=== PATIENT | female | born 1985 | race Caucasian/White ===

== ENCOUNTER 2018-06-25 14:38 | Outpatient (CLI) | payer MEDICAID ==
[2018-06-25 15:07] LABS: ADD MAN DIFF? NO
[2018-06-25 15:09] LABS: BASOPHILS % 0.1 % (0.0-2.0); EOSINOPHILS # 0.1 10^3/ul (0.0-0.5); EOSINOPHILS % 0.7 % (0.0-7.0); HEMATOCRIT 34.1 % (37.0-47.0); HEMOGLOBIN 11.4 g/dl (12.0-16.0); LYMPHOCYTES # 1.1 10^3/ul (0.8-2.9); LYMPHOCYTES % 16.2 % (15.0-51.0); MEAN CORPUSCULAR HEMOGLOBIN 30.2 pg (29.0-33.0); MEAN CORPUSCULAR HGB CONC 33.4 g/dl (32.0-37.0); MEAN CORPUSCULAR VOLUME 90.5 fl (82.0-101.0); MEAN PLATELET VOLUME 11.8 fl (7.4-10.4); MONOCYTE # 0.6 10^3/ul (0.3-0.9); MONOCYTES % 9.1 % (0.0-11.0); NEUTROPHIL # 5.1 10^3/ul (1.6-7.5); NEUTROPHILS % 73.3 % (39.0-77.0); PLATELET COUNT 147 10^3/UL (140-415); RED BLOOD COUNT 3.77 10^6/ul (4.20-5.40); RED CELL DISTRIBUTION WIDTH 13.4 % (11.5-14.5)
[2018-06-25 15:46] LABS: FREE T3 2.71 pg/ml (2.77-5.27)
[2018-06-25 15:46] LABS: FREE T4 (FREE THYROXINE) 1.14 ng/dl (0.79-2.35)
[2018-06-25 16:01] LABS: HEPATITIS B SURFACE ANTIGEN NEGATIVE (NEGATIVE)
[2018-06-25 16:11] LABS: HIV 1&2 ANTIBODY NEGATIVE (NEGATIVE)
[2018-06-26 13:51] LABS: RUBELLA ANTIBODY - IGG 2.49 index
[2018-06-26 20:44] LABS: RAPID PLASMA REAGIN NONREACTIVE (NR)
== END 2018-06-25 17:25 | disposition home or self-care (01) ==
LOC: OBT 14:38 → L-D 14:38 → OBT 17:25
DX: O26.893 Other specified pregnancy related conditions, third trimester (principal); Z3A.37 37 weeks gestation of pregnancy; R10.2 Pelvic and perineal pain
CPT/HCPCS: 76815; 76818; 84439; 84443; 84481; 85025; 86592; 86703; 86762; 86900; 86901; 87081; 87340; 87591

== ENCOUNTER 2018-07-06 02:01 | Inpatient (IN) | payer MEDICAID ==
[2018-07-06] MEDS: LACTATED RINGER'S 1,000 ML IV (02:46)
[2018-07-06] MEDS ORDERED: CARBOPROST 250 MCG INJ IM ×2 (03:00→05:30)
[2018-07-06] MEDS ORDERED: MISOPROSTOL 200 MCG TAB PR ×2 (03:00→05:30)
[2018-07-06] MEDS ORDERED: METHYLERGONOVINE 0.2 MG INJ IM ×2 (03:00→05:30)
[2018-07-06] MEDS ORDERED: IBUPROFEN 600 MG TAB PO (03:00)
[2018-07-06] MEDS ORDERED: AMPICILLIN 2 GM/NS (PMX) 100 ML IV (03:00)
[2018-07-06] MEDS ORDERED: OXYTOCIN 30 UNITS/LR 500 ML IV ×2 (03:00→05:30)
[2018-07-06] MEDS ORDERED: BUTORPHANOL 2 MG INJ IV ×2 (03:00)
[2018-07-06 03:12] LABS: ADD MAN DIFF? NO
[2018-07-06 03:13] LABS: BASOPHILS % 0.1 % (0.0-2.0); EOSINOPHILS # 0.1 10^3/ul (0.0-0.5); EOSINOPHILS % 0.5 % (0.0-7.0); HEMOGLOBIN 11.5 g/dl (12.0-16.0); LYMPHOCYTES % 18.5 % (15.0-51.0); MEAN CORPUSCULAR HEMOGLOBIN 30.7 pg (29.0-33.0); MEAN CORPUSCULAR HGB CONC 33.8 g/dl (32.0-37.0); MEAN CORPUSCULAR VOLUME 90.7 fl (82.0-101.0); MEAN PLATELET VOLUME 12.6 fl (7.4-10.4); MONOCYTE # 1.1 10^3/ul (0.3-0.9); MONOCYTES % 9.8 % (0.0-11.0); NEUTROPHIL # 7.7 10^3/ul (1.6-7.5); NEUTROPHILS % 70.5 % (39.0-77.0); PLATELET COUNT 136 10^3/UL (140-415); RED BLOOD COUNT 3.75 10^6/ul (4.20-5.40); RED CELL DISTRIBUTION WIDTH 13.1 % (11.5-14.5)
[2018-07-06 03:17] LABS: INR 0.93; PROTIME 12.6 Sec (11.9-14.9)
[2018-07-06] MEDS: OXYTOCIN 30 UNITS/LR 500 ML IV ×2 (03:26→03:41)
[2018-07-06] MEDS: LIDOCAINE 1% (MPF) 30 ML INJ INJ (03:30)
[2018-07-06] MEDS ORDERED: OXYCODONE/ASPIRIN (4.88/325) TAB PO ×2 (05:30)
[2018-07-06] MEDS ORDERED: ZOLPIDEM 5 MG TAB PO (05:30)
[2018-07-06] MEDS: MINERAL OIL LIGHT 10 ML VIAL TOP (05:45)
[2018-07-06] MEDS: WITCH HAZEL/GLYCERIN PAD PR (05:53)
[2018-07-06] MEDS: LANOLIN HPA 1 PKT TOP (05:53)
[2018-07-06] MEDS: BENZOCAINE 20% 56 ML SPRAY TOP (05:53)
[2018-07-06] MEDS: IBUPROFEN 600 MG TAB PO ×3 (05:54→17:53)
[2018-07-06] MEDS ORDERED: AMPICILLIN 1 GM/NS (PMX) 50 ML IV (07:00)
[2018-07-06] MEDS: SENNA/DOCUSATE NA (8.6MG/50MG) TAB PO ×2 (09:41→21:19)
[2018-07-06] MEDS: LEVOTHYROXINE 137 MCG TAB PO (09:41)
[2018-07-06 14:53] LABS: RAPID PLASMA REAGIN NONREACTIVE (NR)
[2018-07-07] MEDS: IBUPROFEN 600 MG TAB PO ×4 (00:16→18:00)
[2018-07-07] MEDS: LEVOTHYROXINE 137 MCG TAB PO (05:35)
[2018-07-07] MEDS: LANOLIN HPA 1 PKT TOP ×3 (05:36→22:29)
[2018-07-07] MEDS ORDERED: LEVOTHYROXINE 137 MCG TAB PO (06:00)
[2018-07-07 07:11] LABS: ADD MAN DIFF? NO
[2018-07-07 07:21] LABS: WHITE BLOOD COUNT 8.8 10^3/ul (4.8-10.8)
[2018-07-07 07:21] LABS: BASOPHILS % 0.3 % (0.0-2.0); EOSINOPHILS # 0.1 10^3/ul (0.0-0.5); HEMATOCRIT 32.3 % (37.0-47.0); HEMOGLOBIN 10.7 g/dl (12.0-16.0); LYMPHOCYTES # 1.9 10^3/ul (0.8-2.9); MEAN CORPUSCULAR HEMOGLOBIN 30.9 pg (29.0-33.0); MEAN CORPUSCULAR HGB CONC 33.1 g/dl (32.0-37.0); MEAN CORPUSCULAR VOLUME 93.4 fl (82.0-101.0); MEAN PLATELET VOLUME 11.9 fl (7.4-10.4); MONOCYTE # 0.8 10^3/ul (0.3-0.9); MONOCYTES % 9.4 % (0.0-11.0); NEUTROPHILS % 67.7 % (39.0-77.0); PLATELET COUNT 122 10^3/UL (140-415); RED BLOOD COUNT 3.46 10^6/ul (4.20-5.40); RED CELL DISTRIBUTION WIDTH 13.5 % (11.5-14.5)
[2018-07-07] MEDS: SENNA/DOCUSATE NA (8.6MG/50MG) TAB PO ×2 (10:13→22:29)
[2018-07-08] MEDS: IBUPROFEN 600 MG TAB PO ×3 (00:06→11:48)
[2018-07-08] MEDS: LEVOTHYROXINE 137 MCG TAB PO (06:46)
[2018-07-08] MEDS: SENNA/DOCUSATE NA (8.6MG/50MG) TAB PO (08:58)
[2018-07-08] MEDS: DIPHTH/TET/ACEL PERTUSS (ADULT) 0.5 ML VIAL IM* (08:59)
[2018-07-08] MEDS: LANOLIN HPA 1 PKT TOP (10:50)
[2018-07-08] MEDS: BENZOCAINE 20% 56 ML SPRAY TOP (10:50)
[2018-07-08] MEDS: WITCH HAZEL/GLYCERIN PAD PR (10:50)
== END 2018-07-08 14:00 | disposition home or self-care (01) | DRG 807 ==
LOC: OBT 02:01 → L-D 02:01 → OBT 02:10 → L-D 02:10 → PP1 05:16
PROVIDERS: Obstetrics & Gynecology
PROC: 10E0XZZ Delivery of Products of Conception, External Approach (ICD-10-PCS; principal; 2018-07-06)
PROC: 0HQ9XZZ Repair Perineum Skin, External Approach (ICD-10-PCS; 2018-07-06)
DX: O70.9 Perineal laceration during delivery, unspecified (principal); Z37.0 Single live birth; Z3A.39 39 weeks gestation of pregnancy
CPT/HCPCS: 85025; 85610; 85730; 86592; 86850; 86900; 86901; 90715